=== PATIENT | female | born 2005 | race Two or more races ===

== ENCOUNTER 2025-02-04 21:43 | Emergency (ER) | payer MEDICAID ==
[~2025-02-04] VITALS: Ht 160 cm; Wt 62.0 kg
[2025-02-04] MEDS ORDERED: ACET-2080 PO (23:39)
[2025-02-04] MEDS ORDERED: IBUP-1554 PO (23:39)
[2025-02-04] MEDS: IBUPROFEN 600 MG TABLET PO ONE (23:54)
[2025-02-04] MEDS: ACETAMINOPHEN 500 MG TABLET PO ONE (23:55)
[2025-02-04 23:57] VITALS: BP 114/71; PULSE 98; RESP 18; TEMP 98; O2SAT 98
== END 2025-02-05 00:11 | disposition home or self-care (01) ==
LOC: EMS 21:43
DX: J02.8 Acute pharyngitis due to other specified organisms (principal); B97.89 Other viral agents as the cause of diseases classified elsewhere; R09.81 Nasal congestion
CPT/HCPCS: 87430; 99283